=== PATIENT | female | born 1990 | race Caucasian/White ===

== ENCOUNTER 2019-04-27 12:53 | Inpatient (IN) | payer BC ==
[2019-04-27] MEDS ORDERED: hydrALAZINE 20 MG/ML VIAL SLOW IVP PRN ×2 (13:34→14:23)
--- NOTE | 2019-04-27 13:37 | PDOC.LDHP ---
Labor and Delivery H&P Chief complaint: contractions, loss of fluid HPI: Patient is a 28 @ 38.6 wga by lmp/10.4wk radha, ES 05/05/19, presenting with a cc of loss of fluid. Patient noted a gush of fluid this morning at 0830am with residual gushes throughout today, blood tinged at times. She reports that she is feeling what she thinks are contractions, but they aren't painful. She feels baby moving. She denies abdominal pain, changes in vision, cp, sob, dysuria. Denies vaginal bleeding aside from scant blood in fluid. Patient is a patient of [facility], pcp Dr. Street. Due date: 05/05/19 Dating criteria: last menstrual period OB History Details: 5 years ago- SAB at 9-10wga 8-9 years ago- elective Current complications: other (Exposure to cat litter, titers neg and 3T neg; S<D at last clinic visit 04/24) Abnormal US findings: No Current medications: pre- vitamins Previous surgical history: none Allergies/Adverse Reactions: Allergies Allergy/AdvReac Type Severity Reaction Status Date / Time No Known Allergies Allergy Unverified 04/27/19 14:14 Social history: none - Physical Exam Vital signs reviewed and normal: yes General: NAD, resting Heart: RRR Lungs: CTAB Abdomen: gravid Extremeties: no edema FHT: variability present (reactive strip) [facility] contractions every: 3-5min - Vaginal Exam cm dilated: 0 Effacement: 0% Station: -3 - OB Labs Blood type: O RH: positive Antibody Screen: negative HIV: negative RPR: negative HEPSAg: negative 1 hour GCT: negative (108, A1C 5.0) GBS: negative Rubella: immune - Plan Plan: observation in L&D -: 28yo at 38.6wga by lmp/10.4wk radha presents today with loss of fluid #term , loss of fluid -patient reports loss of fluid @ 830am today with residual leakage throughout the day -patient is feeling contractions, non-painful; q3-5min on the strip -reactive strip, baseline 120 -sterile spec demonstrated pooling of fluid, cough test negative -amnisure sent to lab -cervical check closed/thick/high @ 1400 Dispo: monitor on L&D, amnisure pending, cervical check closed/thick/high, recheck in 2 hours. Will also discuss with pcp Yenifer and consider starting pitocin Addendum - Attending - Attending Attestation Date/Time: 04/27/19 2835 I personally evaluated the patient and discussed the management with Dr. Gaines. I agree with the History, Examination, Assessment and Plan documented above with any addition or exceptions noted below. Admit for Prelabor SROM at term. Cephalic. GBS neg. Dr. Street has requested cytotec due to unfavorable yost score. Harsh consistently, may progress without intervention or may require Pitocin.
[2019-04-27 14:21] LABS: Amnisure Internal Control QC ACCEPTABLE (ACCEPTABLE); Amnisure Test RUPTURE DETECTED (No Rupture)
[2019-04-27] MEDS ORDERED: Carboprost 250 MCG/ML AMP IM PRN (14:23)
[2019-04-27] MEDS ORDERED: Diphenoxylate HCl/Atropine Tablet PO PRN (14:23)
[2019-04-27] MEDS ORDERED: Misoprostol 200 MCG TAB PR PRN (14:23)
[2019-04-27] MEDS ORDERED: Methylergonovine 0.2 MG/ML VIAL IM PRN (14:23)
[2019-04-27] MEDS ORDERED: Acetaminophen 500 MG TAB PO PRN (14:23)
[2019-04-27] MEDS ORDERED: Lidocaine 1% (PF) 30 ML VIAL SC PRN (14:23)
[2019-04-27] MEDS ORDERED: Butorphanol Tartrate 1 MG/ML VIAL SLOW IVP PRN (14:23)
[2019-04-27] MEDS ORDERED: Promethazine HCl 25 MG/ML VIAL IM PRN ×2 (14:23→20:03)
[2019-04-27] MEDS ORDERED: Ondansetron PF 4 MG/2 ML Vial IVP PRN ×2 (14:23→20:03)
[2019-04-27] MEDS ORDERED: Ibuprofen 800 MG TAB PO PRN (14:23)
[2019-04-27 14:25] VITALS: BMI 29.6
[2019-04-27] MEDS ORDERED: NS w/ Oxytocin 10 units 500 ML IV SCH (14:30)
--- NOTE | 2019-04-27 14:34 | PDOC.EVN ---
Event Note - Event Note Event Note: Discussed plan of care with Dr. Street and Dr. Golden. Plan to start vaginal cytotec, hold off on pitocin at this time. Will re-check cervix 2-4hrs s/p cytotec placement. Patient agreeable to plan of care.
[2019-04-27] MEDS ORDERED: Misoprostol 100 MCG TAB VAG SCH (15:00)
[2019-04-27] MEDS: Lactated Ringer's 1,000 ML IV SCH (15:26)
[2019-04-27 15:38] LABS: Hemoglobin 14.9 g/dL (12.0-16.0); Mean Corpuscular Volume 91.2 fL (78.0-98.0); Mean Platelet Volume 8.6 fL (7.4-10.4); Platelet Count 223 thou/uL (130-400); RBC Distribution Width 12.7 % (11.5-14.5); Red Blood Cell (RBC) Count 4.79 mill/uL (4.20-5.40); White Blood Cell (WBC) Count 9.9 thou/uL (4.8-10.8)
[2019-04-27 16:17] LABS: Syphilis Antibody Nonreactive (Nonreactive); Syphilis Antibody Index 0.06 S/CO (<1.00 Non-Reactive)
[2019-04-27 16:18] LABS: HBSAg Index 0.19 S/CO (0-0.99); Hep B Surf Ag Non-Reactive S/CO (NonReactive)
--- NOTE | 2019-04-27 17:02 | PDOC.BPN ---
- Brief Progress Note 28yo at 38.6wga by lmp/10.4wk radha presents today with ROM #Term in labor with ROM -patient reports loss of fluid @ 830am 04/27 with pooling of fluid on exam and amnisure positive -patient is feeling contractions; q3-7min on the strip -Cat I strip -cytotec was unable to be placed due to frequency of ctx at that time. Cervical recheck was /-2 @ 16:35 without intervention - not desiring epidural Dispo: Will start pitocin for IOL.
[2019-04-27] MEDS ORDERED: Fentanyl 4 mcg/Bup 0.1% Cadd 100 ML ONE (19:26)
[2019-04-27] MEDS ORDERED: ePHEDrine/0.9% NaCl/PF SYRINGE 50 mg/10 ml SLOW IVP PRN (20:03)
[2019-04-27] MEDS ORDERED: Acetaminophen 325 MG TAB PO PRN (20:03)
[2019-04-27] MEDS ORDERED: diphenhydrAMINE 50 MG/ML VIAL IVP PRN (20:03)
[2019-04-27] MEDS ORDERED: Naloxone HCl 0.4 mg/ml Vial IVP PRN ×2 (20:03)
[2019-04-27] MEDS ORDERED: Lactated Ringer's 500 ML IV PRN (20:03)
[2019-04-27] MEDS ORDERED: Communication Order-Pharmacy FS SCH (20:15)
[2019-04-27] MEDS ORDERED: Fentanyl 4 mcg/Bupivacaine 0.1% Cassette 100 ML EPIDURAL SCH (20:15)
[2019-04-28] MEDS: Lactated Ringer's 1,000 ML IV SCH (01:39)
--- NOTE | 2019-04-28 02:49 | PDOC.LDPN ---
Labor & Delivery Progress Note - Subjective Subjective: comfortable - Objective Vital signs reviewed and normal: yes General: NAD, resting Uterine fundus: non tender SVE: By Yenifer at 1:00 AM Dilation: 4 Effacement: 90% Station: 0 FHT: category 1, variability present [place] contractions every: q3-4 min IUPC placed: yes FSE placed: yes - Assessment (1) Term Code(s): Z34.90 - ENCNTR FOR SUPRVSN OF NORMAL , UNSP, UNSP TRIMESTER Current Visit: Yes Status: Acute (2) PROM (premature rupture of membranes) Code(s): O42.90 - [facility] ROM, 7TH0 BETW RUPT & ONST LABR, UNSP WEEKS OF GEST Current Visit: Yes Status: Acute Plan: continue plan of care, pitocin for augmentation -: 28 year old at 39.0 wks TIUP w/ PROM - SROM, clear fluid at 8:00 AM on 04/27 - IUPC and FSE placed at 1:00 on 04/28 d/t difficulty monitoring contractions and heart tones - Continue pitocin for augmentation - Monitor for S/S infection; no noted maternal fever - GBS negative Dispo: Continue labor augmentation. Addendum - Attending - Attending Attestation Date/Time: 04/28/19 7316 Agree with management. Recheck in 2 hours.
[2019-04-28] MEDS ORDERED: Fentanyl 4 mcg/Bup 0.1% Cadd 100 ML ONE (03:11)
[2019-04-28] MEDS: NS / Oxytocin 40 units/1000ml 1,000 ML IV PRN ×2 (03:33→04:32)
--- NOTE | 2019-04-28 04:29 | PDOC.OPDEL ---
OB Operative/Delivery Note Delivery Dr/Surgeon: Dr. Cyr Assist: Dr. Street, attending Dr. Arnett Pre-Delivery Diagnosis: ruptured membrane Procedure/Post Delivery Dx: spontaneous vaginal delivery Anesthesia: epidural - Findings A Sex: male - 1 min: 9 - 5 min: 9 - Additional Findings/Plan Placenta delivered: spontaneous Repaired Obstetrical Laceration: 2nd degree Estimated blood loss: 225ml Compilations/Other Findings: This is 28yo F @ 39wks who delivered a viable M infant at 0327 on 2018. Following an uneventful antepartum course, a vigorous male was delivered over an intact perineum in the occipitoanterior position. Anterior Shoulder and then remainder of the body delivered. No nuchal cord. The head was held down and mouth and nares were bulb suctioned. Cord clamped after delayed cord clamping and cut and cord blood collected. Placenta delivered intact with a 3 vessel cord noted. Fundal massage was performed and the fundus was firm. The cervix and vagina were inspected. Bilateral hemostatic superior labial laceration noted. 2nd degree perineal laceration noted and repaired in the usual fashion with good approximation and hemostasis. went to nursery in good condition for routine care. Apgars were 9/9 at 1 & 5 minutes, respectively. Patient tolerated delivery well and went to after routine recovery/care. Post delivery plan: routine recovery Addendum - Attending - Attending Attestation Date/Time: 04/28/19 2295 I was present for the entire delivery and repair.
[2019-04-28] MEDS ORDERED: Ondansetron PF 4 MG/2 ML Vial IVP PRN (07:30)
[2019-04-28] MEDS ORDERED: Bisacodyl 10 MG SUPP PR PRN (07:30)
[2019-04-28] MEDS ORDERED: hydrALAZINE 20 MG/ML VIAL SLOW IVP PRN (07:30)
[2019-04-28] MEDS ORDERED: NS / Oxytocin 40 units/1000ml 1,000 ML IV SCH (07:30)
[2019-04-28] MEDS ORDERED: diphenhydrAMINE 25 MG CAP PO PRN (07:30)
[2019-04-28] MEDS ORDERED: Milk Of Magnesia 30 ML UDCUP PO PRN (07:30)
[2019-04-28] MEDS ORDERED: Adacel (T-DAP) 0.5 ML SYRINGE IM ONE (07:30)
[2019-04-28] MEDS ORDERED: Lanolin Ointment 7 GM TUBE TOP PRN (07:30)
[2019-04-28] MEDS ORDERED: Benzocaine-Menthol 82.5 ML CAN TOP PRN (07:30)
[2019-04-28] MEDS ORDERED: Preparation H Ointment 28 GM TUBE PR PRN (07:30)
[2019-04-28] MEDS: Ferrous Sulfate 325 MG TAB PO SCH ×2 (08:27→18:18)
[2019-04-28] MEDS: Prenatal Vitamin 1 TAB PO SCH (08:37)
[2019-04-28] MEDS: Docusate Calcium (SURFAK) 240 MG CAP PO SCH ×2 (10:55→22:10)
[2019-04-28] MEDS: Ibuprofen 800 MG TAB PO SCH ×2 (14:00→22:10)
[2019-04-28] MEDS ORDERED: FLU VACC QS2019-20(6MOS UP)/PF 60 MCG/0.5 ML SYRINGE IM ONE (14:30)
[2019-04-28] MEDS ORDERED: HYDROcodone/Acetaminophen 5/325 mg Tablet PO SCH (18:45)
[2019-04-29] MEDS: Ibuprofen 800 MG TAB PO SCH ×3 (06:03→21:37)
[2019-04-29] MEDS: Ferrous Sulfate 325 MG TAB PO SCH ×2 (07:31→15:46)
[2019-04-29] MEDS: Lactated Ringer's 1,000 ML IV SCH (07:35)
[2019-04-29] MEDS: Docusate Calcium (SURFAK) 240 MG CAP PO SCH ×2 (09:12→21:37)
[2019-04-29] MEDS: Prenatal Vitamin 1 TAB PO SCH (09:12)
--- NOTE | 2019-04-29 18:04 | PDOC.PP ---
Post Progress Note Post Day #: 1 Subjective: Patient doing well. No significant overnight events. Denies chest pain, shortness of breath, n/v. She is and states she feels it is going well. is latching well. No concerns at this time. She would like to have circumcision. She does endorse vaginal pain from laceration but states the dermaplast is helping. PO intake tolerated: yes Flatus: yes Ambulation: yes Vital Signs (12 hours) Temp Pulse Resp BP Pulse Ox 04/29/19 08:40 97.6 F 63 12 112/69 99 Weight Weight 78.018 kg - Physical Examination General: NAD Cardiovascular: RRR Deviation from normal: 2/6 systolic murmur Respiratory: clear to auscultation bilaterally, non-labored breathing Abdominal: + bowel sounds, lochia (less than period), no distention, appropriately TTP Fundus firm & at: below umbilicus Skin: no rash Neurological: no gross focal deficits Psychiatric: A&Ox3, normal affect Result Diagrams: 04/27/19 14:51 Additional Labs: Post Labs Blood Type O POSITIVE 04/27/19 16:32 Hep Bs Antigen Non-Reactive S/CO (NonReactive) 04/27/19 14:51 (1) Term Code(s): Z34.90 - ENCNTR FOR SUPRVSN OF NORMAL , UNSP, UNSP TRIMESTER Status: Acute (2) PROM (premature rupture of membranes) Code(s): O42.90 - [facility] ROM, 7TH0 BETW RUPT & ONST LABR, UNSP WEEKS OF GEST Status: Acute - Assessment/Plan 28 year old G1 now P1 delivered TAGA M at 39 wks by LMP/10.4 wk sono on 04/28 TIUP, delivered - Doing well, meeting all PP milestones - Rubella immune, Rh + - Ambulating - well, good latch, milk supply is coming in; mother without concerns - PROM 19h; no s/s infection in mom or baby Toxoplasmosis exposure - Titers negative in 1T and 2T Dispo: Plan for d/c home tomorrow. Addendum - Attending - Attending Attestation Date/Time: 04/29/191925 I personally evaluated the patient and discussed the management with Dr. Street I agree with the History, Examination, Assessment and Plan documented above with any addition or exceptions noted below. 28 yo now female s/p uncomplicated on 04/28/19 at 0327 HD#2 PPD#1 Patient doing well. Mild lochia. No clots. Pain controlled. No vaginal swelling or pain. No difficulty with voiding or ambulation. VS reviewed. NAD. RRR. No murmurs. CATB. No w/c/r. Fundus firm, below umbilicus. Nontender. Perineum healing well. Appropriately tender. No dehiscence. No discharge. No edema. FROM. No c/c/e. 1. s/p uncomplicated : Continue pp care. Encourage ambulation. Monitor lochia and pain control throughout the day. Likely d/c in AM. 2. PROM x 19 hours. No s/sx of infection. 3. 2nd degree perineal laceration: Healing well. 4. Contraception: Unsure. Linda
[2019-04-30] MEDS: Ibuprofen 800 MG TAB PO SCH (06:25)
[2019-04-30] MEDS: Ferrous Sulfate 325 MG TAB PO SCH (08:38)
[2019-04-30] MEDS: Docusate Calcium (SURFAK) 240 MG CAP PO SCH (08:59)
[2019-04-30] MEDS: Prenatal Vitamin 1 TAB PO SCH (08:59)
[2019-04-30 09:40] VITALS: BP 116/61; TEMP 97.6
--- NOTE | 2019-04-30 12:33 | PDOC.PP ---
Post Progress Note Post Day #: 2 Subjective: Patient doing well. No significant overnight events. Meeting all PP milestones. PO intake tolerated: yes Flatus: yes Ambulation: yes Vital Signs (12 hours) Temp Pulse Resp BP Pulse Ox 04/30/19 08:00 97.6 F 63 16 116/61 97 04/30/19 03:30 97.8 F 63 18 106/66 97 Weight Weight 78.018 kg - Physical Examination General: NAD Cardiovascular: RRR Deviation from normal: 2/6 systolic murmur Respiratory: clear to auscultation bilaterally, non-labored breathing Abdominal: + bowel sounds, lochia (minimal), no distention, appropriately TTP Fundus firm & at: below umbilicus Skin: no rash Neurological: no gross focal deficits Psychiatric: A&Ox3, normal affect Result Diagrams: 04/27/19 14:51 Additional Labs: Post Labs Blood Type O POSITIVE 04/27/19 16:32 Hep Bs Antigen Non-Reactive S/CO (NonReactive) 04/27/19 14:51 (1) Term Code(s): Z34.90 - ENCNTR FOR SUPRVSN OF NORMAL , UNSP, UNSP TRIMESTER Status: Acute (2) PROM (premature rupture of membranes) Code(s): O42.90 - [facility] ROM, 7TH0 BETW RUPT & ONST LABR, UNSP WEEKS OF GEST Status: Acute - Assessment/Plan 28 year old G1 now P1 delivered TAGA M at 39 wks by LMP/10.4 wk sono on 04/28 TIUP, delivered - Doing well, meeting all PP milestones - Rubella immune, Rh + - Ambulating - well, good latch, milk supply is coming in; mother without concerns - PROM 19h; no s/s infection in mom or baby Toxoplasmosis exposure - Titers negative in 1T and 2T in mother 2nd degree perineal laceration - Healing well - Dermaplast as needed Dispo: Plan for d/c home today. Addendum - Attending - Attending Attestation Date/Time: 04/30/19 1486 I personally evaluated the patient and discussed the management with Dr. Street I agree with the History, Examination, Assessment and Plan documented above with any addition or exceptions noted below. 28 yo now female s/p uncomplicated on 04/28/19 at 0327 HD#3 PPD#2 Doing well. No complications. Lochia mild. VS reviewed. NAD. RRR. No murmurs. CATB. No w/c/r. Fundus firm, below umbilicus. Nontender. FROM. No c/c/e. 1. s/p uncomplicated : Doing well. Ok to d/c to home. 2. PROM x 19 hours. No s/sx of infection. 3. 2nd degree perineal laceration: Healing well. 4. Contraception: Unsure. Ok to d/c to home. Follow up in 2 wks. Linda
== END 2019-04-30 14:15 | disposition home or self-care (01) | DRG 807 ==
LOC: L&D/OP 12:53 → L&D 16:59 → 3SW 04-28 21:56
PROVIDERS: ADMIT Family Medicine; ATTEND Family Medicine
PROC: 10E0XZZ Delivery of Products of Conception, External Approach (ICD-10-PCS; principal; 2019-04-28)
PROC: 0KQM0ZZ Repair Perineum Muscle, Open Approach (ICD-10-PCS; 2019-04-28)
DX: O42.92 Full-term premature rupture of membranes, unspecified as to length of time between rupture and onset of labor (principal); Z37.0 Single live birth; Z3A.39 39 weeks gestation of pregnancy; O70.1 Second degree perineal laceration during delivery; O75.89 Other specified complications of labor and delivery; Z20.89 Contact with and (suspected) exposure to other communicable diseases
CPT/HCPCS: 36415; 51702; 84112; 85027; 86780; 86850; 86900; 86901; 87340; 99285; J2405; J2590